=== PATIENT | female | born 1965 | race Caucasian/White ===

== ENCOUNTER 2018-07-05 16:04 | Outpatient (RCR) | payer BC | END 2018-08-12 08:25 | disposition home or self-care (01) | LOC: MKS.ESL.PT 16:04 | DX: Z98.890 Other specified postprocedural states (principal); Z96.651 Presence of right artificial knee joint; Z48.89 Encounter for other specified surgical aftercare ==

== ENCOUNTER 2018-09-14 11:15 | Outpatient (RCR) | payer BC | END 2018-10-17 | disposition home or self-care (01) | LOC: MKS.ESL.PT | DX: Z98.890 Other specified postprocedural states (principal); M25.562 Pain in left knee ==

== ENCOUNTER → 2019-04-21 | Outpatient (CLI) | payer BC | LOC: MC.RAD 17:00 | DX: Z12.31 Encounter for screening mammogram for malignant neoplasm of breast (principal) ==